=== PATIENT | female | born 1985 | race Hispanic/Latino ===

== ENCOUNTER 2020-07-31 16:15 | Emergency (ER) | payer SELFPAY ==
[2020-07-31 16:23] VITALS: BP 108/59
--- NOTE | 2020-07-31 17:10 | XRay Report ---
LEFT ANKLE 3 VIEWS INDICATION / CLINICAL INFORMATION: pain. COMPARISON: None available. FINDINGS: BONES/JOINT(S): No acute fracture or subluxation. No significant degenerative changes. SOFT TISSUES: No significant abnormality. ADDITIONAL FINDINGS: None. Signer Name: Uri Mc MD Signed: 07/31/2020 5:06 PM Workstation Name: [id number]
== END 2020-07-31 19:42 | disposition left against medical advice (07) ==
LOC: ED 16:15
DX: S99.922A Unspecified injury of left foot, initial encounter (principal); Z53.21 Procedure and treatment not carried out due to patient leaving prior to being seen by health care provider; W19.XXXA Unspecified fall, initial encounter; Y93.89 Activity, other specified; Y92.89 Other specified places as the place of occurrence of the external cause; Y99.8 Other external cause status